=== PATIENT | female | born 1960 | race Caucasian/White ===

== ENCOUNTER 2019-09-10 10:10 | Emergency (ER) | payer SELFPAY ==
[~2019-09-10] VITALS: Ht 165.1 cm; Wt 108.4 kg
[~2019-09-10 10:10] MED LIST: ALBUTEROL0.63 MG/3 PO; AMLODIPINE BESY10 MG PO; ATENOLOL50 MG PO; LEXAPRO10 MG PO; METFORMIN HCL850 MG PO; SIMVASTATIN20 MG PO
[2019-09-10] MEDS ORDERED: HYDROCODONE/APAP 10MG-325MG TAB PO ONE (11:00)
--- NOTE | 2019-09-10 11:58 | Diagnostic Imaging Report ---
EXAMINATION: CHEST 2 VIEWS INDICATION: ^fall, rule out fracture right anterior lateral ^[id number] ^1050 COMPARISON: 11/24/2010 FINDINGS: PA and lateral views TUBES and LINES: None. LUNGS: Lungs are well inflated. Mild bilateral interstitial edema. No lobar consolidations. PLEURA: No pleural effusion or pneumothorax. HEART AND MEDIASTINUM: Mild enlargement of the cardiac silhouette. BONES AND SOFT TISSUES: Mild cortical irregularity of the lateral right seventh rib is better seen on subsequent RIBS x-ray series. Soft tissues are unremarkable. UPPER ABDOMEN: No free air under the diaphragm. IMPRESSION: Mild bilateral interstitial edema. When compared to right-sided rib series from same day, there appears to be a minimally displaced fracture of the lateral aspect of the right seventh rib. Signed by: Dr. Gerri Rome M.D. on 09/10/2019 11:55 AM
--- NOTE | 2019-09-10 12:00 | Diagnostic Imaging Report ---
RIGHT-SIDED RIBS SERIES - 3 VIEWS HISTORY: ^fall, rule out fracture right anteriorlateral ^[id number] ^1050 COMPARISON: Chest radiograph 09/10/2019 FINDINGS: Bones: There appears to be a minimally displaced fracture of the lateral aspect of the right seventh rib. Osseous alignment is within normal limits. Joints: The joint spaces are well-maintained. Soft tissues: The soft tissues appear unremarkable. IMPRESSION: Possible minimally displaced fracture of the lateral aspect of the right seventh rib. Recommend follow-up right-sided rib series in 2 weeks. No pleural effusions or pneumothorax. Signed by: Dr. Gerri Rome M.D. on 09/10/2019 11:57 AM
[2019-09-10] MEDS ORDERED: TYLENOL WITH C1 EACH PO (12:43)
[2019-09-10 13:13] VITALS: BP 156/74
== END 2019-09-10 13:15 | disposition home or self-care (01) ==
LOC: ER 10:10
DX: S20.211A Contusion of right front wall of thorax, initial encounter (principal); S22.31XA Fracture of one rib, right side, initial encounter for closed fracture; R07.89 Other chest pain; W01.0XXA Fall on same level from slipping, tripping and stumbling without subsequent striking against object, initial encounter; Y93.01 Activity, walking, marching and hiking; Y92.481 Parking lot as the place of occurrence of the external cause; I10 Essential (primary) hypertension; E11.9 Type 2 diabetes mellitus without complications; E78.5 Hyperlipidemia, unspecified; J44.9 Chronic obstructive pulmonary disease, unspecified
CPT/HCPCS: 71046; 71101; 99283